=== PATIENT | male | born 2000 | race Caucasian/White ===

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

== ENCOUNTER 2024-04-15 13:28 | Emergency (ER) | payer MEDICAID ==
[2024-04-15 13:42] VITALS: BP 143/73
[2024-04-15 16:04] VITALS: PULSE 92
== END 2024-04-15 13:50 | disposition home or self-care (01) ==
LOC: LB.ED 13:28
DX: K04.01 Reversible pulpitis (principal); K02.9 Dental caries, unspecified
CPT/HCPCS: 99282

== ENCOUNTER 2024-07-09 13:14 | Emergency (ER) | payer MEDICAID ==
[2024-07-09 13:50] VITALS: BP 128/79; PULSE 55
== END 2024-07-09 13:45 | disposition home or self-care (01) ==
LOC: LB.ED 13:14
DX: K02.9 Dental caries, unspecified (principal); F17.210 Nicotine dependence, cigarettes, uncomplicated
CPT/HCPCS: 99282